=== PATIENT | female | born 1935 | race Asian ===

== ENCOUNTER 2019-09-08 05:50 | Observation (INO) | payer MEDICARE, MEDICAID ==
[~2019-09-08] VITALS: Ht 154.9 cm; Wt 54.5 kg
[~2019-09-08 05:50] MED LIST: AMLO10TA8 PO; AMLO2.5T2 PO; CLOP75TA52 PO; DICY10CA3 PO; FAMO40TA61 PO; FURO-93 PO; HYDR-3342 PO; IRON1TAB60 PO; ISOS120T4 PO; LATA2.5D3 EACHEYE; LISI-170 PO; LISI2.5T PO; LOVA10TA PO; MECL-101 PO; METO25TA35 PO; METO50TA82 PO; MISO200T15 PO; MV-M1TAB16 PO; NITR0.3T5 SL; NITR0.4T28 SL; OMEG1CAP23 PO; RANO10002 PO; RIVA10TA2 PO; RIVA20TA PO; ROSU5TAB PO; SUCR1TAB PO; SUCR1TAB33 PO
[2019-09-08] MEDS ORDERED: DILTIAZEM 5 MG/ML, 5ML IV ONE (06:00)
[2019-09-08] MEDS ORDERED: SODIUM CHLORIDE FLUSH 10ML SYR IVF ONE (06:00)
[2019-09-08] MEDS ORDERED: CALCIUM PO (06:03)
--- NOTE | 2019-09-08 06:14 | NUR ---
PT BIB [facility] AFTER WAKING UP WITH 7/10 CRUSHING CP. PT TOOK NITRO X3 W/O RELIEF. HX TIA, HTN, HLP, PACER. PT PULSES 2+, GROSS NEURO INTACT, CMS INTACT. SKIN P/W/D, NAD, VSS. PT PLACED ON BP/ECG/SPO2 MONITORING. LABS AND RADS SENT. WAITING FOR RESULTS. [employer] AT BS FOR EVAL AND POC. WCTM. [address] E[address]TE
[2019-09-08 06:15] LABS: BASOPHILS # (AUTO) 0.02 x10^3/uL (0-0.1); BASOPHILS % (AUTO) 0 % (0-1); EOSINOPHILS # (AUTO) 0.04 x10^3/uL (0-0.4); EOSINOPHILS % (AUTO) 1 % (1-7); LYMPHOCYTES # (AUTO) 2.39 x10^3/uL (1-3.4); LYMPHOCYTES % (AUTO) 29 % (22-44); MD NO; MEAN CORPUSCULAR HEMOGLOBIN 32.3 pg (27.0-34.8); MEAN CORPUSCULAR HGB CONC 32.3 g/dL (32.4-35.8); MEAN PLATELET VOLUME 6.8 fL (7.4-10.4); MONOCYTES # (AUTO) 0.75 x10^3/uL (0.2-0.8); MONOCYTES % (AUTO) 9 % (2-9); NEUTROPHILS # (AUTO) 5.07 x10^3/uL (1.8-6.8); NEUTROPHILS % (AUTO) 61 % (42-75); PLATELET COUNT 282 x10^3/uL (130-400); RED BLOOD COUNT 4.19 x10^6/uL (3.82-5.3); RED CELL DISTRIBUTION WIDTH 13.6 % (9.6-15.2)
[2019-09-08] MEDS ORDERED: DILTIAZEM 5 MG/ML, 5ML ONE (06:20)
[2019-09-08 06:25] LABS: MICROSCOPIC NOT IND
[2019-09-08 06:26] LABS: ALANINE AMINOTRANSFERASE 22 U/L (12-78); ALBUMIN 3.8 g/dL (3.4-5.0); ANION GAP 8 mmol/L (5-15); CALCIUM 9.6 mg/dL (8.5-10.1); CHLORIDE 100 mmol/L (98-107); CREATININE 1.06 mg/dL (0.55-1.02)
--- NOTE | 2019-09-08 06:30 | NUR ---
PT TRANSFERRED TO [facility] VIA STAND BY ASSIST. UA COLLECTED AND SENT TO LAB. PT CONDITION UNCHANGED. MEDICATED PER APR. DAUGHTER AT , WCTM. WAITING FOR TEST RESULTS.
[2019-09-08 06:31] LABS: ALKALINE PHOSPHATASE 67 U/L (45-117); BILIRUBIN,TOTAL 0.6 mg/dL (0.2-1.0); TOTAL PROTEIN 8.2 g/dL (6.4-8.2); TROPONIN I 0.098 ng/mL (0.000-0.045)
--- NOTE | 2019-09-08 06:54 | NUR ---
BEDSIDE REPORT TO MIKAL LOMELI. PT CARE TRANSFERRED AT THIS TIME. NO CHANGE IN CONDITION.
[2019-09-08] MEDS ORDERED: SODIUM CHLORIDE 0.9% 1,000ML IVBOLUS ONE (07:00)
[2019-09-08] MEDS ORDERED: HEPARIN 25,000 UNITS/250ML PMX 250 ML IV PRN (07:30)
[2019-09-08] MEDS ORDERED: HEPARIN 5,000 UNITS/ML, 1ML IV PRN ×2 (07:30→20:30)
[2019-09-08] MEDS ORDERED: OMNIPAQUE 350 MG/ML, 100ML BOTTLE ONE (07:51)
[2019-09-08] MEDS ORDERED: POLYETHYLENE GLYCOL 17 GM PACKET PO PRN (08:00)
[2019-09-08] MEDS ORDERED: ONDANSETRON ODT 4 MG PO PRN (08:00)
[2019-09-08] MEDS ORDERED: ACETAMINOPHEN 325 MG TABLET PO PRN (08:00)
[2019-09-08] MEDS ORDERED: ENOXAPARIN 40 MG/0.4 ML SQ SCH (08:00)
[2019-09-08] MEDS ORDERED: ONDANSETRON 2MG/ML, 2ML IVPush PRN (08:00)
[2019-09-08] MEDS ORDERED: HEPARIN 5,000 UNITS/ML, 1ML IV ONE (08:00)
[2019-09-08] MEDS ORDERED: DOCUSATE 100 MG CAPSULE PO PRN (08:00)
[2019-09-08] MEDS ORDERED: NS + 20MEQ KCL 1,000 ML IV ONE (08:16)
[2019-09-08] MEDS ORDERED: HEPARIN 5,000 UNITS/ML, 1ML ONE (08:21)
[2019-09-08] MEDS ORDERED: HEPARIN 25,000 UNITS/250ML PMX 250 ML ONE (08:21)
[2019-09-08] MEDS ORDERED: SODIUM CHLORIDE FLUSH 10ML SYR IVF PRN (08:30)
[2019-09-08] MEDS: NS + 20MEQ KCL 1,000 ML IV SCH (08:42)
[2019-09-08] MEDS ORDERED: METOPROLOL TARTRATE 25 MG TAB ONE (08:46)
[2019-09-08] MEDS ORDERED: METOPROLOL TARTRATE 50 MG TAB PO SCH (09:00)
[2019-09-08] MEDS ORDERED: FAMOTIDINE 40 MG TABLET PO SCH (09:00)
[2019-09-08] MEDS ORDERED: AMLODIPINE 10 MG TAB PO SCH (09:00)
--- NOTE | 2019-09-08 09:35 | NUR ---
WENT OVER PLAN OF CARE. HAS NO REQUESTS AT THIS TIME
[2019-09-08 11:09] VITALS: BP 126/55
[2019-09-08 11:20] LABS: TROPONIN I 0.156 ng/mL (0.000-0.045)
[2019-09-08] MEDS: SUCRALFATE 1 GM TABLET PO SCH (11:36)
[2019-09-08] MEDS: CLOPIDOGREL 75 MG TABLET PO SCH (11:36)
[2019-09-08] MEDS: DICYCLOMINE 10 MG CAPSULE PO SCH (11:37)
[2019-09-08] MEDS: RANOLAZINE 500 MG TAB.ER.12H PO SCH ×2 (11:37→22:14)
[2019-09-08] MEDS: LISINOPRIL 40 MG TABLET PO SCH (11:37)
[2019-09-08] MEDS: METOPROLOL TARTRATE 100 MG TAB PO SCH ×2 (11:37→17:15)
[2019-09-08] MEDS: ISOSORBIDE MONONITRATE ER 60 MG TABLET PO SCH ×2 (11:37→22:14)
[2019-09-08 14:00] VITALS: BP 126/78
[2019-09-08] MEDS: MISOPROSTOL 200 MCG TABLET PO SCH (17:15)
[2019-09-08 17:21] LABS: TROPONIN I 0.153 ng/mL (0.000-0.045)
[2019-09-08] MEDS ORDERED: TEMPLATE NON-FORMULARY MED. (Rosuvastatin Calcium** (Crestor**) 5 MG) PO SCH (21:00)
[2019-09-08] MEDS ORDERED: ATORVASTATIN 20 MG TABLET PO SCH (21:00)
[2019-09-08] MEDS ORDERED: LATANOPROST OPHTH 0.005%, 2.5ML EACHEYE SCH (21:00)
[2019-09-08 21:56] VITALS: BP 112/66
[2019-09-09] MEDS: NS + 20MEQ KCL 1,000 ML IV SCH (01:10)
[2019-09-09 01:14] VITALS: BP 120/56
[2019-09-09 02:39] LABS: CHOL/HDL RATIO 3.3; LDL/HDL RATIO 1.7 (0.5-3.0)
[2019-09-09 06:20] VITALS: BP 132/68
[2019-09-09] MEDS: METOPROLOL TARTRATE 100 MG TAB PO SCH (06:23)
[2019-09-09 06:40] VITALS: BP 131/73
[2019-09-09] MEDS ORDERED: HEPARIN 25,000 UNITS/250ML PMX 250 ML IV PRN (07:30)
[2019-09-09] MEDS ORDERED: AMLODIPINE 5 MG TABLET PO SCH (09:00)
[2019-09-09] MEDS ORDERED: FAMOTIDINE 20 MG TABLET PO SCH (09:00)
[2019-09-09] MEDS: LISINOPRIL 40 MG TABLET PO SCH (09:38)
[2019-09-09] MEDS: ISOSORBIDE MONONITRATE ER 60 MG TABLET PO SCH (09:38)
[2019-09-09] MEDS: SUCRALFATE 1 GM TABLET PO SCH (09:39)
[2019-09-09] MEDS: CLOPIDOGREL 75 MG TABLET PO SCH (09:39)
[2019-09-09] MEDS: DICYCLOMINE 10 MG CAPSULE PO SCH (09:39)
[2019-09-09] MEDS: MISOPROSTOL 200 MCG TABLET PO SCH (09:41)
[2019-09-09] MEDS: RANOLAZINE 500 MG TAB.ER.12H PO SCH (09:45)
[2019-09-09] MEDS ORDERED: METO-99 PO (10:47)
[2019-09-09] MEDS ORDERED: RIVAROXABAN 15 MG TABLET PO SCH (11:00)
== END 2019-09-09 13:00 | disposition home or self-care (01) ==
LOC: ED 06:31 → INTOOBSV 07:54 → EDIP 07:54 → 5SO 10:21 → DCLOUNGE 09-09 12:48
PROVIDERS: ADMIT Internal Medicine; ATTEND Family Medicine
DX: I21.A1 Myocardial infarction type 2 (principal); I48.20 Chronic atrial fibrillation, unspecified; I48.0 Paroxysmal atrial fibrillation; I21.4 Non-ST elevation (NSTEMI) myocardial infarction; I25.110 Atherosclerotic heart disease of native coronary artery with unstable angina pectoris; I49.5 Sick sinus syndrome; D68.69 Other thrombophilia; I10 Essential (primary) hypertension; E78.5 Hyperlipidemia, unspecified; E89.0 Postprocedural hypothyroidism; K21.9 Gastro-esophageal reflux disease without esophagitis; G89.29 Other chronic pain; M54.5 Low back pain; E11.9 Type 2 diabetes mellitus without complications; Z95.0 Presence of cardiac pacemaker; Z86.73 Personal history of transient ischemic attack (TIA), and cerebral infarction without residual deficits; Z79.899 Other long term (current) drug therapy; Z95.5 Presence of coronary angioplasty implant and graft; Z79.01 Long term (current) use of anticoagulants
CPT/HCPCS: 36415; 71045; 71275; 80053; 80061; 81003; 83036; 83735; 83880; 84443; 84484; 85025; 85520; 93005; 93306; 96374; 96375; 99285; G0378; J1644; J3480; J7030; Q9967